=== PATIENT | female | born 1985 | race Caucasian/White ===

== ENCOUNTER 2023-10-17 06:35 | Emergency (ER) | payer OTHER, SELFPAY ==
[2023-10-17 06:40] VITALS: BP 133/84; PULSE 77; RESP 16; TEMP 36.8; O2SAT 99
--- NOTE | 2023-10-17 08:48 | ED.DENTAL ---
HPI - Dental/Oral General Chief complaint: Dental/Oral Stated complaint: jaw pain Time Seen by Provider: 10/17/23 07:07 History of Present Illness HPI Narrative: 38-year-old female presented to the emergency department for evaluation of dental pain that is been ongoing for the last 4 days. Patient does have a history of wisdom tooth pain and dental pain. Patient states she has been taking ibuprofen for pain control with no significant improvement. Patient states she does not have current dental insurance and is concerned about how she is going to have additional dental care. Related Data Allergies Allergy/AdvReac Type Severity Reaction Status Date / Time ciprofloxacin Allergy Mild Joint Pain Verified 10/17/23 06:43 latex Allergy Hives Verified 10/17/23 06:43 Review of Systems Review of Systems: All systems reviewed & are unremarkable except as noted in HPI and below Exam Narrative: APPEARANCE: Uncomfortable due to dental pain HEAD: normocephalic, atraumatic. EYES: PERRLA/EOMI, conjunctivae clear. NOSE: Normal no drainage Mouth: No abscess, no trismus EARS:TMS clear with good light reflex. THROAT: Pharynx clear, no exudate. NECK: Supple. No adenopathy, no masses. RESPIRATORY: Airway patent, respirations nonlabored. Clear to auscultation bilaterally, no rales, rhonchi, wheezing. CARDIOVASCULAR: Regular rate and rhythm without murmurs rubs or gallops. ABDOMINAL: Soft, nontender, nondistended, normal bowel sounds MUSCULOSKELETAL: Moves all extremities. Strength/ROM intact, No edema, No calf tenderness. NEURO: Alert. Cranial nerves II through XII intact. Grossly intact SKIN: Warm, dry. Normal Color Course Course Emergency Course: Patient was started on antibiotics and encouraged close follow-up with her dentist. Vital Signs Vital signs: Vital Signs Temperature 98.2 F 10/17/23 06:40 Pulse Rate 77 10/17/23 06:40 Respiratory Rate 16 10/17/23 06:40 Blood Pressure 133/84 10/17/23 06:40 Pulse Oximetry 99 10/17/23 06:40 Oxygen Delivery Room Air 10/17/23 06:40 Temperature 98.2 F 10/17/23 06:40 Pulse Rate 78 10/17/23 09:04 Respiratory Rate 16 10/17/23 09:04 Blood Pressure 114/78 10/17/23 09:04 Pulse Oximetry 99 10/17/23 06:40 Oxygen Delivery Room Air 10/17/23 06:40 MDM - Dental/Oral MDM Narrative Medical decision making narrative: 38-year-old female presents to the emergency department for evaluation of worsening dental pain. No abscess or trismus. Patient was advised to take ibuprofen for pain control, start taking omeprazole, patient was provided [place] for pain control and patient is being started on antibiotics. Differential Diagnosis Differential diagnosis: Likely dental caries, toothache, dental abscess, fracture of tooth and aphthous ulcer Discharge Plan Discharge Clinical Impression: Toothache Patient Disposition: Home, Self-Care Condition: Stable Instructions: Antibiotic Form, Toothache (ED) Additional Instructions: Ibuprofen for pain control. [place] as needed for additional pain control. Antibiotic as directed until completed. Omeprazole for the next 14 days while you are taking ibuprofen. Have close follow-up with your dentist. Prescriptions: New omeprazole 20 mg tablet,delayed release (DR/EC) 20 mg PO DAILY 14 Days Qty: 14 0RF hydrocodone-acetaminophen 5-325 mg tablet 1 tablet PO Q8H PRN (Reason: pain) Qty: 20 0RF amoxicillin-pot clavulanate 875-125 mg tablet 1 tablet PO Q12H Qty: 14 0RF Follow-up/Referrals: UNKNOWN,DOCTOR [Primary Care Provider] - Stand Alone Forms: Work/School Release IP
[2023-10-17] MEDS: HYDROcodone/acetaminophen (*CRX) 5-325 MG TABLET 1 TAB PO (09:00)
[2023-10-17] MEDS: AMOXICILLIN/CLAVULANATE K 875-125 MG TAB 1 TABLET PO (09:00)
[2023-10-17 09:04] VITALS: BP 114/78; PULSE 78; RESP 16
== END 2023-10-17 09:06 | disposition home or self-care (01) ==
PROVIDERS: Emergency Provider Emergency Medicine
DX: K08.89 Other specified disorders of teeth and supporting structures (principal)
CPT/HCPCS: 99283; A9270